=== PATIENT | male | born 2000 | race Caucasian/White ===

== ENCOUNTER 2025-03-24 10:06 | Emergency (ER) | payer OTHER, SELFPAY ==
[2025-03-24 10:16] VITALS: BP 139/75; PULSE 70; RESP 16; TEMP 36.7; O2SAT 100
--- NOTE | 2025-03-24 10:31 | ECG_ITS ---
Test Date: 2025-03-24 10:33:48 Measurements Intervals [place] Rate: 54 P: 56 AK: 143 QRS: 66 QRSD: 87 T: 48 QT: 390 QTc: 370 Interpretive Statements SINUS BRADYCARDIA BORDERLINE ECG No previous ECG available for comparison Electronically Signed On 03-24-2025 13:52:36 CDT by Sp Parker D.O.
--- NOTE | 2025-03-24 10:32 | ED.GENADULT ---
HPI - General Adult General Chief complaint: Nausea/Vomiting/Diarrhea Stated complaint: nausea, completely out of it, bloated Source: patient Mode of arrival: ambulatory Limitations: no limitations History of Present Illness HPI narrative: Patient presents for evaluation of near syncopal episodes. Symptom onset yesterday. Symptoms occur at least once an hour and last 10-20 seconds in duration. During these episodes, he also experiences headaches in the occipital and frontal regions of his head. He states the pain is throbbing and last 20 minutes in duration. No underlying history of headaches. He rates his symptoms at of 10 severity. He has also been experiencing abdominal pain that he describes as tightness and pressure. He has been having solid bowel movements but notes mucus in the stool, in bowel frequency fluctuates between 1 bowel movement every few days to 4 bowel movements within 8 hours. He has some mild nausea but denies vomiting, diarrhea or chest pain. Related Data Home Medications ?Medication ?Instructions ?Recorded ?Confirmed ?Last Taken ?Type No Home Medications 03/24/25 Unknown History Allergies Allergy/AdvReac Type Severity Reaction Status Date / Time No Known Allergies Allergy Verified 03/24/25 10:19 Review of Systems Review of Systems: CONSTITUTIONAL: Denies fever, chills, or sweats. EYES: Denies visual changes, redness, or discharge. ENT: Denies rhinorrhea, congestion, sore throat, or otalgia. CARDIOVASCULAR: Denies chest pain, palpitations, or edema. RESPIRATORY: Denies cough or dyspnea. GASTROINTESTINAL: Reports abdominal pain. Denies nausea, vomiting, or diarrhea. GENITOURINARY: Denies dysuria or hematuria. SKIN: Denies rash or itching. MUSCULOSKELETAL: Denies back pain, joint pain, or myalgia. NEUROLOGIC: Reports new onset headaches and sensation that he may pass out. PSYCHIATRIC: Denies anxiety or depression. [facility] Past Medical History Medical History (Updated 03/24/25 @ 10:47 by Blayne Arguellse, DENG, ESTHELA) No pertinent past medical history Surgical History Surgical History History of tonsillectomy Family History Family History Mother Family history non-contributory Social History Social History (Reviewed 03/24/25 @ 10:44 by Blayne Arguelles, [facility], ) Additional occupation/education comments: Works at [employer] Gender identity (if verbalized by the patient): Male Sexual Orientation (if Verbalized by the Patient): Straight or Heterosexual Spiritual care concerns: No Exam Narrative: GENERAL: Well-appearing, well-nourished, and in no acute distress. HEAD: Normocephalic, atraumatic. EYES: PERRLA and EOMI. ENT: Nares clear, no rhinorrhea or epistaxis. Mucous membranes moist. Oropharynx without tonsillar hypertrophy exudate or other lesions. Bilateral TMs pearly madrigal nonbulging NECK: Supple. No adenopathy or masses. No carotid bruits or JVD CHEST: Clear to auscultation. No respiratory distress. No wheezes rales or rhonchi HEART: Rate 54. Normal rhythm. No murmur heard. Normal peripheral pulses. ABDOMEN: Soft, nontender, nondistended, normal active bowel sounds. EXTREMITIES: Normal range of motion. No edema. SKIN: Warm, dry, no rash. NEURO: No focal deficits. Alert and oriented x3. PSYCH: Normal mood and affect. Course Course Emergency Course: This is a 24-year-old male who presented for evaluation of near syncopal episodes with headaches and abdominal pain. His blood sugar here was 89. EKG showed sinus bradycardia. I recommended he be transferred to the emergency department for further evaluation treatment. [facility] is his facility of choice. I contacted [facility] and spoke with nurse, Radha, who indicated that Dr Argueta would accept pt for transfer there. Pt transferred via private vehicle. Level of Care: Express Care Visit Vital Signs Vital signs: Vital Signs Temperature 36.7 C 03/24/25 10:16 Pulse Rate 70 03/24/25 10:16 Respiratory Rate 16 03/24/25 10:16 Blood Pressure 139/75 03/24/25 10:16 Pulse Oximetry 100 03/24/25 10:16 Oxygen Delivery Room Air 03/24/25 10:16 Temperature 36.7 C 03/24/25 10:16 Pulse Rate 70 03/24/25 10:16 Respiratory Rate 16 03/24/25 10:16 Blood Pressure 139/75 03/24/25 10:16 Pulse Oximetry 100 03/24/25 10:16 Oxygen Delivery Room Air 03/24/25 10:16 Medical Decision Making Vital Signs Vital Signs: Vital Signs Temperature 36.7 C 03/24/25 10:16 Pulse Rate 70 03/24/25 10:16 Respiratory Rate 16 03/24/25 10:16 Blood Pressure 139/75 03/24/25 10:16 Pulse Oximetry 100 03/24/25 10:16 Oxygen Delivery Room Air 03/24/25 10:16 Temperature 36.7 C 03/24/25 10:16 Pulse Rate 70 03/24/25 10:16 Respiratory Rate 16 03/24/25 10:16 Blood Pressure 139/75 03/24/25 10:16 Pulse Oximetry 100 03/24/25 10:16 Oxygen Delivery Room Air 03/24/25 10:16 Lab Data Labs: Lab Results 03/24/25 Range/Units 10:38 POC Capillary Glucose 89 (65-105) mg/dl ECG Data EKG #1: ECG completion date: 03/24/25 ECG completion time: 10:33 Interpretation: Sinus bradycardia, rate 54, no ST segment changes. Discharge Plan Discharge Clinical Impression: Near syncope, Abdominal pain, New onset headache Patient Disposition: Acute Care Hospital Condition: Stable Patient Language: Chinese Prescriptions: No Action No Home Medications Follow-up/Referrals: PHYSICIAN,SUPERVISOR PROCESS TESTING [Primary Care Provider] - Time of Disposition: 10:47
[2025-03-24 10:41] LABS: Glucose Point of Care 89 mg/dl (65-105)
== END 2025-03-24 10:46 | disposition short-term general hospital (02) ==
PROVIDERS: Emergency Provider Nurse Practitioner
DX: R55 Syncope and collapse (principal); R10.9 Unspecified abdominal pain; R51.9 Headache, unspecified
CPT/HCPCS: 82948; 93005; 99213; G0463